=== PATIENT | female | born 1990 | race Caucasian/White ===

== ENCOUNTER 2018-03-16 14:34 | Inpatient (IN) | payer MEDICAID ==
[~2018-03-16 14:34] MED LIST: DEXAMETHASONE 4 MG/ML 1 ML INJ; LIDOCAINE 2% (SDV) 5 ML INJ; ONDANSETRON 4 MG INJ
[2018-03-16] MEDS ORDERED: SOD CHLORIDE 0.9% 1,000 ML IV (16:19)
[2018-03-16 16:28] LABS: ADD MAN DIFF? NO
[2018-03-16] MEDS: ACETAMINOPHEN 325 MG TAB PO (16:29)
[2018-03-16 16:34] LABS: BASOPHILS % 0.1 % (0.0-2.0); EOSINOPHILS % 0.2 % (0.0-7.0); HEMOGLOBIN 12.7 g/dl (12.0-16.0); LYMPHOCYTES # 3.1 10^3/ul (0.8-2.9); LYMPHOCYTES % 22.4 % (15.0-51.0); MEAN CORPUSCULAR HEMOGLOBIN 31.6 pg (29.0-33.0); MEAN CORPUSCULAR HGB CONC 33.4 g/dl (32.0-37.0); MEAN CORPUSCULAR VOLUME 94.5 fl (82.0-101.0); MEAN PLATELET VOLUME 10.4 fl (7.4-10.4); MONOCYTE # 0.6 10^3/ul (0.3-0.9); MONOCYTES % 4.2 % (0.0-11.0); NEUTROPHILS % 72.6 % (39.0-77.0); PLATELET COUNT 267 10^3/UL (140-415); RED BLOOD COUNT 4.02 10^6/ul (4.20-5.40); RED CELL DISTRIBUTION WIDTH 12.7 % (11.5-14.5)
[2018-03-16 16:34] LABS: WHITE BLOOD COUNT 13.8 10^3/ul (4.8-10.8)
[2018-03-16 16:48] LABS: ADD UMIC YES; UR AMORPHOUS CRYSTAL FEW /HPF (NONE SEEN); UR ASCORBIC ACID NEGATIVE (NEGATIVE); UR BACTERIA FEW /HPF (NONE SEEN); UR BILIRUBIN (Dip) NEGATIVE (NEGATIVE); UR BLOOD (Dip) 3+ mg/dL (NEGATIVE); UR CLARITY SLIGHTLY CLOUDY (CLEAR); UR COLOR YELLOW (YELLOW); UR GLUCOSE (Dip) NEGATIVE (NEGATIVE); UR KETONES (Dip) NEGATIVE (NEGATIVE); UR LEUKOCYTE ESTERASE (Dip) NEGATIVE Leu/ul (NEGATIVE); UR NITRITE (Dip) NEGATIVE (NEGATIVE); UR RBC 3 /HPF (0-5); UR SPECIFIC GRAVITY (Dip) 1.001 (1.003-1.030); UR SQUAMOUS EPITHELIAL CELL MODERATE /HPF (FEW); UR TOTAL PROTEIN (Dip) NEGATIVE (NEGATIVE); UR UROBILINOGEN (Dip) NEGATIVE (NEGATIVE); UR WBC 3 /HPF (0-5)
[2018-03-16 16:58] LABS: ALANINE AMINOTRANSFERASE 21 IU/L (13-69); ALBUMIN 3.7 g/dl (3.3-4.9); ALBUMIN/GLOBULIN RATIO 1.15; ALKALINE PHOSPHATASE 37 IU/L (42-121); ANION GAP 10 (5-13); ASPARTATE AMINO TRANSFERASE 17 IU/L (15-46); BILIRUBIN,INDIRECT 0.8 mg/dl (0-1.1); BILIRUBIN,TOTAL 0.8 mg/dl (0.2-1.3); BLOOD UREA NITROGEN 5 mg/dl (7-20); CALCIUM 9.8 mg/dl (8.4-10.2); CARBON DIOXIDE 24 mmol/L (21-31); CHLORIDE 105 mmol/L (97-110); CREATININE 0.52 mg/dl (0.44-1.00); GLUCOSE 97 mg/dl (70-220); LIPASE 27 U/L (23-300); POTASSIUM 3.6 mmol/L (3.5-5.1); SODIUM 139 mmol/L (135-144); TOTAL PROTEIN 6.9 g/dl (6.1-8.1)
[2018-03-16 17:17] LABS: Estimated GFR > 60 mL/min (>60)
[2018-03-16] MEDS ORDERED: FENTAnyl 50 MCG/ML VIAL (18:59)
[2018-03-16] MEDS ORDERED: MIDAZOLAM 1 MG/ML 2 ML INJ (19:00)
[2018-03-16] MEDS ORDERED: METOCLOPRAMIDE 10 MG INJ (19:01)
[2018-03-16] MEDS ORDERED: PROPOFOL 20 ML (19:02)
[2018-03-16] MEDS: morphine 4 MG/ML VIAL IV (19:25)
[2018-03-16] MEDS ORDERED: CEFAZOLIN 1 GM INJ (19:34)
[2018-03-16] MEDS ORDERED: ROPIVACAINE 0.5 % 30 ML VIAL (19:36)
[2018-03-16] MEDS ORDERED: SUGAMMADEX SODIUM 200 MG/2 ML VIAL IV (20:44)
[2018-03-16] MEDS ORDERED: EPINEPHrine 1 MG INJ (20:59)
[2018-03-16] MEDS ORDERED: IPRATROPIUM (NEB) 0.5 MG/2.5 ML AMP HHN (21:30)
[2018-03-16] MEDS ORDERED: ALBUMIN HUMAN 5% 250 ML IV (21:30)
[2018-03-16] MEDS ORDERED: KETOROLAC 30 MG INJ IV (21:30)
[2018-03-16] MEDS ORDERED: DIPHENHYDRAMINE 50 MG INJ IV ×2 (21:30→22:00)
[2018-03-16] MEDS ORDERED: HYDROmorphONE 1 MG/5 ML IV SYRINGE IV ×3 (21:30)
[2018-03-16] MEDS ORDERED: ONDANSETRON 4 MG INJ IV ×2 (21:30→22:00)
[2018-03-16] MEDS ORDERED: NALOXONE (0.4 MG/ML) INJ IV (21:30)
[2018-03-16] MEDS ORDERED: FENTAnyl 50 MCG/ML VIAL IV ×2 (21:30)
[2018-03-16] MEDS ORDERED: LEVALBUTEROL (NEB) 1.25 MG/0.5 ML AMP HHN (21:30)
[2018-03-16] MEDS ORDERED: MEPERIDINE 25 MG INJ IV (21:30)
[2018-03-16] MEDS ORDERED: EPHEDrine SULFATE 50 MG/5 ML SYG IV (21:30)
[2018-03-16 22:29] LABS: ADD UMIC NO; UR ASCORBIC ACID NEGATIVE (NEGATIVE); UR BILIRUBIN (Dip) NEGATIVE (NEGATIVE); UR BLOOD (Dip) NEGATIVE (NEGATIVE); UR CLARITY CLEAR (CLEAR); UR COLOR STRAW (YELLOW); UR GLUCOSE (Dip) NEGATIVE (NEGATIVE); UR KETONES (Dip) 1+ mg/dL (NEGATIVE); UR LEUKOCYTE ESTERASE (Dip) NEGATIVE Leu/ul (NEGATIVE); UR NITRITE (Dip) NEGATIVE (NEGATIVE); UR SPECIFIC GRAVITY (Dip) 1.006 (1.003-1.030); UR TOTAL PROTEIN (Dip) NEGATIVE (NEGATIVE); UR UROBILINOGEN (Dip) NEGATIVE (NEGATIVE)
[2018-03-16] MEDS: LACTATED RINGER'S 1,000 ML IV (23:20)
[2018-03-17] MEDS: KETOROLAC 30 MG INJ IV ×3 (02:09→15:11)
[2018-03-17] MEDS: DIPHENHYDRAMINE 50 MG CAP PO (03:43)
[2018-03-17 05:52] LABS: ADD MAN DIFF? NO
[2018-03-17 06:03] LABS: WHITE BLOOD COUNT 10.9 10^3/ul (4.8-10.8)
[2018-03-17 06:03] LABS: BASOPHILS % 0.1 % (0.0-2.0); HEMATOCRIT 30.7 % (37.0-47.0); HEMOGLOBIN 10.3 g/dl (12.0-16.0); LYMPHOCYTES # 0.8 10^3/ul (0.8-2.9); LYMPHOCYTES % 7.6 % (15.0-51.0); MEAN CORPUSCULAR HEMOGLOBIN 31.8 pg (29.0-33.0); MEAN CORPUSCULAR HGB CONC 33.6 g/dl (32.0-37.0); MEAN CORPUSCULAR VOLUME 94.8 fl (82.0-101.0); MEAN PLATELET VOLUME 10.8 fl (7.4-10.4); MONOCYTE # 0.4 10^3/ul (0.3-0.9); MONOCYTES % 3.8 % (0.0-11.0); NEUTROPHIL # 9.6 10^3/ul (1.6-7.5); PLATELET COUNT 201 10^3/UL (140-415); RED BLOOD COUNT 3.24 10^6/ul (4.20-5.40); RED CELL DISTRIBUTION WIDTH 12.8 % (11.5-14.5)
[2018-03-17] MEDS: LACTATED RINGER'S 1,000 ML IV (07:34)
[2018-03-17] MEDS: OXYCODONE/ACETAMINOPHEN (5/325) TAB PO ×4 (09:02→20:37)
[2018-03-18] MEDS: ALPRAZOLAM 0.25 MG TAB PO (00:50)
[2018-03-18] MEDS: OXYCODONE/ACETAMINOPHEN (5/325) TAB PO ×3 (01:38→13:46)
[2018-03-18] MEDS: SENNA TAB PO (07:21)
== END 2018-03-18 17:14 | disposition home or self-care (01) | DRG 817 ==
LOC: FTE 14:34 → SDS 19:45 → MS1 20:22
PROC: 10T20ZZ Resection of Products of Conception, Ectopic, Open Approach (ICD-10-PCS; principal; 2018-03-16 19:00)
PROC: 0UB50ZZ Excision of Right Fallopian Tube, Open Approach (ICD-10-PCS; 2018-03-16 19:00)
PROC: 0WCG0ZZ Extirpation of Matter from Peritoneal Cavity, Open Approach (ICD-10-PCS; 2018-03-16 19:00)
DX: O00.101 Right tubal pregnancy without intrauterine pregnancy (principal); K66.1 Hemoperitoneum
CPT/HCPCS: 76801; 76817; 80053; 81001; 81003; 81025; 83690; 84702; 85025; 86850; 86900; 86901; 87086; 88305